=== PATIENT | female | born 1970 | race Caucasian/White ===

== ENCOUNTER 2018-12-16 09:51 | Emergency (ER) | payer OTHER ==
[~2018-12-16 09:51] MED LIST: AMLODIPINE BESY10 MG PO; COREG CR40 MG; ENBREL50 MG/1 M1; ZITHROMAX500 MG
--- OUTSIDE RECORDS SUMMARY | 2018-12-16 09:53 | XMS REPORT | Clinical Summary ---
Author Author [facility] Address Unknown Phone Unavailable Care Team Providers Care Chaplaincy Name Role Phone Lucy Wilcox DO PCP Allergies Comments Active Allergy Reactions Severity Noted Date Cyclobenzaprine Swelling 09/13/2017 Medications End Date Status Medication Sig Dispensed Refills Start Date Active amLODIPine (NORVASC) 10 Take 10 mg by 0 mg tablet mouth daily. Active folic acid (FOLVITE) 1 MG Take 1 mg by 0 tablet mouth daily. Active adalimumab (HUMIRA) 10 Inject 10 mg 0 mg/0.2 mL syringe kit under the skin once a week. Active Problems No known active problems Social History Date Tobacco Use Types Packs/Day Years Used Quit: 2013 Former Smoker Cigarettes 1 15 Smokeless Tobacco: Never Used Tobacco Cessation: Counseling Given: No Alcohol Use Drinks/Week oz/Week Comments Yes occational Sex Assigned at Date Recorded Not on file Industry Job Start Date Occupation Not on file Not on file Not on file Travel End Travel History Travel Start No recent travel history available. Last Filed Vital Signs Not on file Plan of Treatment Health Maintenance Due Date Last Done Comments CERVICAL CANCER SCREENING 1992 INFLUENZA VACCINE 04/26/2018 Implants Device Identifier Shelf Expiration Date Model / Serial / Lot Implanted Type Area Manufactur er [id number] / / Device Abltn Endomtrl Rdfreq Cardiovasc N/A: N/A NOVACEPT Novasure - [id number] [employer] Implanted: Qty: 1 on 09/14/2017 by Rochelle Davison MD Results Not on fileafter 12/15/2017 Insurance Payer Benefit Subscriber ID Type Phone Address Plan / Group [facility] xxxxxxxxx HMO/PPO THCARE CHOICE/CHO ICE + Advance Directives Patient has advance care planning documents on file. For more information, dianna luong contact: Michele Benavidez [address] [place] [address]
--- NOTE | 2018-12-16 09:54 | NUR ---
NO RESPONSE AT THIS TIME FROM LOBBY, NO PATIENT IN LOBBY.
== END 2018-12-16 09:56 | disposition short-term general hospital (02) ==
LOC: ER 09:51
DX: R07.89 Other chest pain (principal)